=== PATIENT | female | born 1940 | race African-American/Black ===

== ENCOUNTER 2017-05-03 08:07 | Inpatient (IN) | payer OTHER, BC ==
--- NOTE | 2017-05-03 08:41 | PDOC ---
History of Present Illness - General Chief Complaint: Pain Stated Complaint: ABD PAIN Time Seen by Provider: 05/03/17 08:35 - History of Present Illness Initial Comments: 05/03/17 08:36 Ms. Najera is a 76 yo female with a significant past medical history of IBD, throidectomy, hysterectomy, and complex partial seizures who presents to the emergency department with a several week history of diarrhea and tiredness with occasional spotting of blood and 20 pound weight loss over the last year. Ms. Najera denies chest pain, shortness of breath, headache and dizziness. Denies fever, chills, nausea, vomit, and constipation. Denies dysuria, frequency , urgency and hematuria. Allergies: Wheat, ampicillin, egg, erythromycin, iodine, penicillins Past surgical history: thyroidectomy, breast papilloma biopsy, total hysterectomy Social history: None Past History - Past Medical History Allergies/Adverse Reactions: Allergies Allergy/AdvReac Type Severity Reaction Status Date / Time wheat [Wheat] Allergy Unknown Verified 05/03/17 08:13 ampicillin [Ampicillin] Allergy Verified 05/03/17 08:13 egg [Egg] Allergy Verified 05/03/17 08:13 erythromycin base Allergy Verified 05/03/17 08:13 [Erythromycin Base] iodine [Iodine] Allergy Verified 05/03/17 08:13 Penicillins Allergy Rash Verified 05/03/17 08:13 Shellfish Allergy Verified 05/03/17 08:13 Sulfa (Sulfonamide Allergy Verified 05/03/17 08:13 Antibiotics) tetracycline [Tetracycline] Allergy Verified 05/03/17 08:13 Home Medications: Ambulatory Orders Bupropion HCl [Wellbutrin -] 300 mg PO DAILY 06/01/16 Calcitriol [Calcitriol -] 0.25 mcg PO DAILY 06/01/16 Folic Acid 1 mg PO DAILY 06/01/16 L.acidoph,Paracasei, B.lactis [Probiotic] 1 each PO DAILY 06/01/16 Levothyroxine [Synthroid -] 25 mcg PO DAILY 06/01/16 Loperamide HCl/Simethicone [Imodium Multi-Symptom Rel Cplt] 1 each PO DAILY PRN 06/01/16 Diltiazem Cd [Cardizem Cd -] 240 mg PO DAILY 05/03/17 Furosemide [Lasix -] 20 mg PO DAILY 05/03/17 Nadolol 20 mg PO DAILY 05/03/17 Anemia: No Asthma: No Cancer: No Cardiac Disorders: No CVA: No COPD: No CHF: No Dementia: No Diabetes: No GI Disorders: Yes (GERD,IBS) Disorders: No HTN: Yes Hypercholesterolemia: No Liver Disease: No Suicide Attempt (Hx): No Seizures: Yes (Complex Partial Seizures) Thyroid Disease: Yes - Surgical History Abdominal Surgery: No Appendectomy: No Cardiac Surgery: No Cholecystectomy: No Lung Surgery: No Neurologic Surgery: No Orthopedic Surgery: Yes - Psycho/Social/Smoking Cessation Hx Anxiety: No Suicidal Ideation: No Smoking Status: No Smoking History: Never smoked Have you smoked in the past 12 months: No Number of Cigarettes Smoked Daily: 0 Information on smoking cessation initiated: No Hx Alcohol Use: No Drug/Substance Use Hx: No Substance Use Type: None Hx Substance Use Treatment: No Review of Systems - Review of Systems Comments:: 05/03/17 08:36 GENERAL/CONSTITUTIONAL: +Baseline weakness with low appetite. No fever or chills. HEAD, EYES, EARS, NOSE AND THROAT: No change in vision. No ear pain or discharge. No sore throat. CARDIOVASCULAR: No chest pain or shortness of breath RESPIRATORY: No cough, wheezing, or hemoptysis. GASTROINTESTINAL: +Long standing diarrhea. No nausea, vomiting, or constipation. GENITOURINARY: No dysuria, frequency, or change in urination. MUSCULOSKELETAL: No joint or muscle swelling or pain. No neck or back pain. SKIN: No rash NEUROLOGIC: No headache, vertigo, loss of consciousness, or change in strength/ sensation. ENDOCRINE: +20 pound weight loss. No increased thirst. HEMATOLOGIC/LYMPHATIC: No anemia, easy bleeding, or history of blood clots. ALLERGIC/IMMUNOLOGIC: No hives or skin allergy. *Physical Exam - Vital Signs Last Vital Signs Temp Pulse Resp BP Pulse Ox 98.1 F 57 L 18 130/66 100 05/03/17 08:08 05/03/17 08:08 05/03/17 08:08 05/03/17 08:08 05/03/17 08:08 - Physical Exam Comments: 05/03/17 08:36 GENERAL: Awake, alert, and fully oriented, in no acute distress HEAD: No signs of trauma, normocephalic, atraumatic EYES: PERRLA, EOMI, sclera anicteric, conjunctiva clear ENT: Auricles normal inspection, hearing grossly normal, nares patent, oropharynx clear without exudates. Moist mucosa NECK: Normal ROM, supple, no lymphadenopathy, JVD, or masses LUNGS: No distress, speaks full sentences, clear to auscultation bilaterally HEART: Regular rate and rhythm, normal S1 and S2, no murmurs, rubs or gallops, peripheral pulses normal and equal bilaterally. ABDOMEN: +Diffusely moderately tender. Soft, normoactive bowel sounds. No guarding, no rebound. No masses EXTREMITIES: Normal inspection, Normal range of motion, no edema. No clubbing or cyanosis. NEUROLOGICAL: Cranial nerves II through XII grossly intact. Normal speech, normal gait, no focal sensorimotor deficits SKIN: Warm, Dry, normal turgor, no rashes or lesions noted. ED Treatment Course - LABORATORY CBC & Chemistry Diagram: 05/03/17 09:15 05/03/17 09:15 Medical Decision Making - Medical Decision Making 05/03/17 13:36 Ms. Najera presents with a multiple week history of diarrhea with weight loss ( 20 lbs). Labs as below. CT showed colitis, will admit for treatment of this and UTI noted on UA. Laboratory Results - last 24 hr 05/03/17 05/03/17 05/03/17 09:15 09:15 09:15 WBC 4.2 RBC 3.92 Hgb 12.2 Hct 37.8 MCV 96.5 H MCH 31.2 MCHC 32.3 RDW 14.9 Plt Count 220 D MPV 8.4 Neutrophils % 46.8 Lymphocytes % 37.6 Monocytes % 13.3 H Eosinophils % 1.2 Basophils % 1.1 Sodium 143 Potassium 4.5 D Chloride 110 H Carbon Dioxide 28 Anion Gap 5 L BUN 9 Creatinine 1.3 H Creat Clearance w eGFR 39.82 Random Glucose 88 Lactic Acid Calcium 8.1 L Total Bilirubin 0.9 D AST 32 D ALT 26 D Alkaline Phosphatase 83 Total Protein 6.8 Albumin 3.2 L Lipase 73 TSH 1.06 D Urine Color Urine Appearance Urine pH Urine Protein Urine Glucose (UA) Urine Ketones Urine Blood Urine Nitrite Urine Bilirubin Urine Urobilinogen Ur Leukocyte Esterase Urine RBC Urine WBC Ur Epithelial Cells Urine Bacteria Urine Mucus Urine Yeast Stool Occult Blood Negative 05/03/17 05/03/17 09:16 10:24 WBC RBC Hgb Hct MCV MCH MCHC RDW Plt Count MPV Neutrophils % Lymphocytes % Monocytes % Eosinophils % Basophils % Sodium Potassium Chloride Carbon Dioxide Anion Gap BUN Creatinine Creat Clearance w eGFR Random Glucose Lactic Acid 0.6 Calcium Total Bilirubin AST ALT Alkaline Phosphatase Total Protein Albumin Lipase TSH Urine Color Ltyellow Urine Appearance Cloudy Urine pH 6.0 Urine Protein Negative Urine Glucose (UA) Negative Urine Ketones Negative Urine Blood 1+ H Urine Nitrite Positive Urine Bilirubin Negative Urine Urobilinogen Negative Ur Leukocyte Esterase 3+ H Urine RBC <1 Urine WBC 1 Ur Epithelial Cells Moderate Urine Bacteria Few Urine Mucus Rare Urine Yeast Rare Stool Occult Blood *DC/Admit/Observation/Transfer Diagnosis at time of Disposition: Colitis - Discharge Dispostion Admit: Yes - Referrals Referrals: Dylan Storm MD [Primary Care Provider] - - Attestations Physician Attestion: 05/03/17 10:11 I, Dr. Amari Joseph, attest that this document has been prepared under my direction and personally reviewed by me in its entirety. I further attest, that it accurately reflects all work, treatment, procedures and medical decision -making performed by me.
[2017-05-03] MEDS ORDERED: SODIUM CHLORIDE 1,000 ML IV STA (09:00)
[2017-05-03 09:47] LABS: BASOPHIL 1.1 % (0-2.0); EOSINOPHIL 1.2 % (0-4.5); MCH 31.2 pg (25.7-33.7); MCHC 32.3 g/dl (32.0-36.0); MEAN CELL VOLUME 96.5 fl (80-96); MEAN PLT VOLUME 8.4 fl (7.5-11.1); NEUTROPHILS 46.8 % (42.8-82.8); PLATELET COUNT 220 K/MM3 (134-434); RDW 14.9 % (11.6-15.6); WHITE BLOOD COUNT 4.2 K/mm3 (4.0-10.0)
[2017-05-03 09:51] LABS: ALBUMIN 3.2 g/dl (3.4-5.0); ANION GAP 5 (8-16); CALCIUM 8.1 mg/dL (8.5-10.1); CO2 28 mmol/L (21-32); CREATININE 1.3 mg/dL (0.55-1.02); GLUCOSE,RANDOM 88 mg/dL (74-106); SGPT/ALT 26 U/L (12-78)
[2017-05-03 09:53] LABS: ALK PHOS 83 U/L (45-117); BILIRUBIN,TOTAL 0.9 mg/dL (0.2-1.0); TOT PROT 6.8 g/dl (6.4-8.2)
[2017-05-03 09:56] LABS: SGOT/AST 32 U/L (15-37)
--- NOTE | 2017-05-03 11:01 | PDOC ---
Attending Attestation - Resident Resident Name: Amari Joseph - ED Attending Attestation I have performed the following: I have examined & evaluated the patient, The case was reviewed & discussed with the resident, I agree w/resident's findings & plan, Exceptions are as noted - HPI HPI: 05/03/17 10:57 76 F with h/o IBS, OA, hypothyroid, seizure d/o, presents to ER with several weeks of intermittent abdominal cramping and diarrhea. Denies F/C. She states that the symptoms are CONSISTENT with her IBS. However, she states that she has lost about 20 pounds over the past year. Denies N/V. She presents today because she is tired of going to the bathroom. Pt is concerned about colon cancer, as she has significant family history of colon CA. Last colonoscopy was 3 years ago. She states that she has a GI doctor she can f/u with. - Physicial Exam PE: 05/03/17 11:03 "GENERAL: Awake, alert, and fully oriented, in no acute distress HEAD: No signs of trauma EYES: PERRLA, EOMI, sclera anicteric, conjunctiva clear ENT: Auricles normal inspection, hearing grossly normal, nares patent, oropharynx clear without exudates. Moist mucosa NECK: Normal ROM, supple, no lymphadenopathy, JVD, or masses LUNGS: Breath sounds equal, clear to auscultation bilaterally. No wheezes, and no crackles HEART: Regular rate and rhythm, normal S1 and S2, no murmurs, rubs or gallops ABDOMEN: Soft, nontender, normoactive bowel sounds. No guarding, no rebound. No masses EXTREMITIES: Normal range of motion, no edema. No clubbing or cyanosis. No cords, erythema, or tenderness NEUROLOGICAL: Cranial nerves II through XII grossly intact. Normal speech, normal gait SKIN: Warm, Dry, normal turgor, no rashes or lesions noted. " - Medical Decision Making 05/03/17 11:04 76 F with several weeks of intermittent abdominal pain and diarrhea. Completely benign exam. Likely related to pt's IBS. However, given duration of symptoms and weight loss, will r/o acute pathology. - Labs - CTAP - IVF
[2017-05-03 11:37] LABS: THYROID STIMULATING HORMONE 1.06 uIU/ml (0.358-3.74)
[2017-05-03 12:06] LABS: URINE APPEARANCE CLOUDY; URINE BILIRUBIN NEGATIVE (NEGATIVE); URINE BLOOD 1+ (NEGATIVE); URINE COLOR LTYELLOW; URINE GLUCOSE (UA) NEGATIVE (NEGATIVE); URINE KETONE NEGATIVE (NEGATIVE); URINE NITRITE POSITIVE (NEGATIVE); URINE PROTEIN NEGATIVE (NEGATIVE); URINE UROBILINOGEN NEGATIVE mg/dL (0.2-1.0)
[2017-05-03 12:07] LABS: URINE LEUK ESTERASE 3+ (NEGATIVE)
[2017-05-03 12:23] LABS: URINE BACTERIA FEW /hpf (NONE SEEN); URINE MUCUS RARE; URINE RBC <1 /hpf (0-3); URINE WBC 1 /hpf (3-5); YEAST RARE
--- NOTE | 2017-05-03 12:29 | CON.GI ---
Consult Consult Specialty:: Gastroenterology Referred by:: Dr Storm Reason for Consultation:: Rectal bleeding, abdominal pain and weight loss - History of Present Illness Chief Complaint: Hematochezia yesterday. Epigastric pain and nausea. History of Present Illness: 76F presents after an episode of hematochezia that occurred yesterday. She has been having urgent and frequent bowel movements and fecal incontinence for the past week culminating in bleeding yesterday. She has also been experiencing epigastric dull pain and nausea but has not vomited. She continues to lose weight and reports and diminished appetite. No dysphagia but has early satiety. Has EGD and colonoscopy on 06/03/16 revealing no obvious ulcers, neoplasms or celiac disease and leading to the removal of a hyperplastic gastric fundus polyp , a hyperplastic descending colon polyp and tubular adenomas from the proximal and distal transverse colon and sigmoid colon. Mild distal half of the colon diverticulosis was also noted. [employer] review reveals that a CT scan in 05/22 revealed abdominal, pelvic and retroperitoneal lymph nodes. Her mother of colon cancer. - History Source History Provided By: Patient, Medical Record Limitations to Obtaining History: No Limitations - Past Medical History [employer]: Yes: Migraine, Seizure (partial complex seizure disorder dx'ed by Dr Tejada) Cardio/Vascular: Yes: HTN Pulmonary: Yes: Sleep Apnea (Pt reports she has a CPAP but does not use it. Refuses to use CPAP in hospital) Gastrointestinal: Yes: Constipation, Diverticulosis, Gastritis, GERD, Hiatal Hernia, Irritable Bowel Disease, Other (colon adenomas, hyperplastic gastric polyp) Hepatobiliary: Yes: Other (IBS) Renal/: Yes: Renal Inusuff, Other (urinary incontinence urinary frequency) Heme/Onc: Yes: B12 Deficiency Infectious Disease: Yes: Herpes Zoster Psych: Yes: Anxiety (Agoraphobia), Depression, Other (agoraphobia) Musculoskeletal: Yes: Osteoarthritis (of knees), Other (restless leg syndrome) Rheumatology: Yes: Other (discoid lupus, carpal tunnel syndrome,DJD) ENT: Yes: Allergic Rhinitis Endocrine: Yes: Hyperparathyroidism (s/p surgery), Hypothyroidism, Other (s/p R thyroidectomy removal of 2 parathyoid gland) - Past Surgical History Past Surgical History: Yes: Arthrosocopy (knees bilaterally) Additional Surgical History: partial right thyroidectomy. 3/4 parathyroidectomies - Alcohol/Substance Use Hx Alcohol Use: No History of Substance Use: reports: None - Smoking History Smoking history: Never smoked Have you smoked in the past 12 months: No Aproximately how many cigarettes per day: 0 - Social History Usual Living Arrangement: Alone ADL: Independent Occupation: retired teacher Place of : [facility] Home Medications - Allergies Allergies/Adverse Reactions: Allergies Allergy/AdvReac Type Severity Reaction Status Date / Time wheat [Wheat] Allergy Unknown Verified 05/03/17 08:13 ampicillin [Ampicillin] Allergy Verified 05/03/17 08:13 egg [Egg] Allergy Verified 05/03/17 08:13 erythromycin base Allergy Verified 05/03/17 08:13 [Erythromycin Base] iodine [Iodine] Allergy Verified 05/03/17 08:13 Penicillins Allergy Rash Verified 05/03/17 08:13 Shellfish Allergy Verified 05/03/17 08:13 Sulfa (Sulfonamide Allergy Verified 05/03/17 08:13 Antibiotics) tetracycline [Tetracycline] Allergy Verified 05/03/17 08:13 - Home Medications Home Medications: Ambulatory Orders Bupropion HCl [Wellbutrin -] 300 mg PO DAILY 06/01/16 Calcitriol [Calcitriol -] 0.25 mcg PO DAILY 06/01/16 Folic Acid 1 mg PO DAILY 06/01/16 L.acidoph,Paracasei, B.lactis [Probiotic] 1 each PO DAILY 06/01/16 Levothyroxine [Synthroid -] 25 mcg PO DAILY 06/01/16 Loperamide HCl/Simethicone [Imodium Multi-Symptom Rel Cplt] 1 each PO DAILY PRN 06/01/16 Diltiazem Cd [Cardizem Cd -] 240 mg PO DAILY 05/03/17 Furosemide [Lasix -] 20 mg PO DAILY 05/03/17 Nadolol 20 mg PO DAILY 05/03/17 Family Disease History - Family Disease History Family Disease History: CA: Grandparent (Breast cancer, cancer of throat), Mother ( colon cancer), Brother (Prostate ca, Hodgkin's lymphoma), Other: Mother Other Family History: pat aunt: uterine cancer, cousin: leukemia, uncle gastric cancer,. 2nd cousin pancreatic cancer Review of Systems - Review of Systems Constitutional: reports: Loss of Appetite, Unintentional Wgt. Loss, Weakness Eyes: reports: Floaters HENT: reports: No Symptoms Neck: reports: Stiffness Cardiovascular: reports: No Symptoms Respiratory: reports: No Symptoms Gastrointestinal: reports: Abdominal Pain, Constipation, Nausea, Rectal Bleeding Genitourinary: reports: Frequency, Incontinence Musculoskeletal: reports: Joint Pain, Muscle Pain, Muscle Weakness Neurological: reports: Parasthesia, Unsteady Gait Psychiatric: reports: Anxiety, Depression Physical Exam-GI Vital Signs: Vital Signs Temperature 98.1 F 05/03/17 08:08 Pulse Rate 57 L 05/03/17 08:08 Respiratory Rate 18 05/03/17 08:08 Blood Pressure 130/66 05/03/17 08:08 O2 Sat by Pulse Oximetry (%) 100 05/03/17 08:08 CBC,CMP WBC 4.2 K/mm3 (4.0-10.0) 05/03/17 09:15 RBC 3.92 M/mm3 (3.60-5.2) 05/03/17 09:15 Hgb 12.2 GM/dL (10.7-15.3) 05/03/17 09:15 Hct 37.8 % (32.4-45.2) 05/03/17 09:15 MCV 96.5 fl (80-96) H 05/03/17 09:15 MCH 31.2 pg (25.7-33.7) 05/03/17 09:15 MCHC 32.3 g/dl (32.0-36.0) 05/03/17 09:15 RDW 14.9 % (11.6-15.6) 05/03/17 09:15 Plt Count 220 K/MM3 (134-434) D 05/03/17 09:15 MPV 8.4 fl (7.5-11.1) 05/03/17 09:15 Neutrophils % 46.8 % (42.8-82.8) 05/03/17 09:15 Lymphocytes % 37.6 % (8-40) 05/03/17 09:15 Monocytes % 13.3 % (3.8-10.2) H 05/03/17 09:15 Eosinophils % 1.2 % (0-4.5) 05/03/17 09:15 Basophils % 1.1 % (0-2.0) 05/03/17 09:15 Sodium 143 mmol/L (136-145) 05/03/17 09:15 Potassium 4.5 mmol/L (3.5-5.1) D 05/03/17 09:15 Chloride 110 mmol/L (98-107) H 05/03/17 09:15 Carbon Dioxide 28 mmol/L (21-32) 05/03/17 09:15 Anion Gap 5 (8-16) L 05/03/17 09:15 BUN 9 mg/dL (7-18) 05/03/17 09:15 Creatinine 1.3 mg/dL (0.55-1.02) H 05/03/17 09:15 Creat Clearance w eGFR 39.82 (>60) 05/03/17 09:15 Random Glucose 88 mg/dL (74-106) 05/03/17 09:15 Lactic Acid 0.6 mmol/L (0.4-2.0) 05/03/17 10:24 Calcium 8.1 mg/dL (8.5-10.1) L 05/03/17 09:15 Total Bilirubin 0.9 mg/dL (0.2-1.0) D 05/03/17 09:15 AST 32 U/L (15-37) D 05/03/17 09:15 ALT 26 U/L (12-78) D 05/03/17 09:15 Alkaline Phosphatase 83 U/L (45-117) 05/03/17 09:15 Total Protein 6.8 g/dl (6.4-8.2) 05/03/17 09:15 Albumin 3.2 g/dl (3.4-5.0) L 05/03/17 09:15 Lipase 73 U/L (73-393) 05/03/17 09:15 TSH 1.06 uIU/ml (0.358-3.74) D 05/03/17 09:15 Constitutional: Yes: Cachectic, Thin Eyes: Yes: Conjunctiva Clear HENT: Yes: Atraumatic Neck: Yes: Trachea Midline, Other (alden incisions) Cardiovascular: Yes: Regular Rate and Rhythm Respiratory: Yes: CTA Bilaterally ...Auscultate: Yes: Normoactive Bowel Sounds ...Palpate: Yes: Soft, Tenderness, Epigastium (mild) ...Percussion: Yes: Tympanitic ...Rectal Exam: Yes: Deferred Edema: No Neurological: Yes: Alert Labs: CBC, BMP 05/03/17 09:15 05/03/17 09:15 Problem List - Problems (1) Rectal bleeding Code(s): K62.5 - HEMORRHAGE OF ANUS AND RECTUM (2) Colon adenomas Code(s): D12.6 - BENIGN NEOPLASM OF COLON, UNSPECIFIED (3) Family history of colon cancer in mother Code(s): Z80.0 - FAMILY HISTORY OF MALIGNANT NEOPLASM OF DIGESTIVE ORGANS Assessment/Plan Given her progressive weight loss and anorexia now with epigastric pain, hematochezia and early satiety, FH of colon cancer and lymphadenopathy on previous CT scan a comprehensive evaluation for an underlying neoplasm is indicated. I have discussed the potential risks of EGD and colonoscopy including but not limited to perforation and hemorrhage in detail with Yesenia Casanova after which she is in a position to give an informed consent. I have scheduled them for 05/05. CT is pending. I will consult oncology. Further recomendations to follow. Her recent head MRI reveals extensive gliosis. A neurology consultation will also be ordered.
[2017-05-03] MEDS ORDERED: LEVOTHYROXINE NA 25 MCG TABLET (FP) PO ONE (12:59)
[2017-05-03] MEDS ORDERED: FOLIC ACID 1 MG TABLET (FP) PO ONE (13:01)
--- NOTE | 2017-05-03 17:05 | HP ---
Admitting History and Physical - Primary Care Physician PCP: Kleber Napoles - Admission Chief Complaint: abdominal pain, bloody stool History of Present Illness: 76 F with h/o IBS, OA, hypothyroid, seizure d/o, presents to ER with several weeks of intermittent abdominal cramping and diarrhea. She states that the symptoms are CONSISTENT with her IBS. However, she states that she has lost about 20 pounds over the past year. Denies N/V. She presents today because she is tired of going to the bathroom. Pt is concerned about colon cancer, as she has significant family history of colon CA. - Past Medical History [employer] MEM[employer]: Yes: Migraine, Seizure (partial complex seizure disorder dx'ed by Dr Tejada) Cardiovascular: Yes: HTN Pulmonary: Yes: Sleep Apnea (Pt reports she has a CPAP but does not use it. Refuses to use CPAP in hospital) Gastrointestinal: Yes: Constipation, Diverticulosis, Gastritis, GERD, Hiatal Hernia, Irritable Bowel Disease, Other (colon adenomas, hyperplastic gastric polyp) Hepatobiliary: Yes: Other (IBS) Renal/: Yes: Renal Inusuff, Other (urinary incontinence urinary frequency) Heme/Onc: Yes: B12 Deficiency Infectious Disease: Yes: Herpes Zoster Psych: Yes: Anxiety (Agoraphobia), Depression, Other (agoraphobia) Musculoskeletal: Yes: Osteoarthritis (of knees), Other (restless leg syndrome) Rheumatology: Yes: Other (discoid lupus, carpal tunnel syndrome,DJD) ENT: Yes: Allergic Rhinitis Endocrine: Yes: Hyperparathyroidism (s/p surgery), Hypothyroidism, Other (s/p R thyroidectomy removal of 2 parathyoid gland) - Past Surgical History Past Surgical History: Yes: Arthrosocopy (knees bilaterally) - Smoking History Smoking history: Never smoked Have you smoked in the past 12 months: No Aproximately how many cigarettes per day: 0 - Alcohol/Substance Use Hx Alcohol Use: No History of Substance Use: reports: None - Social History ADL: Independent Occupation: retired teacher Home Medications - Allergies Allergies/Adverse Reactions: Allergies Allergy/AdvReac Type Severity Reaction Status Date / Time wheat [Wheat] Allergy Unknown Verified 05/03/17 08:13 ampicillin [Ampicillin] Allergy Verified 05/03/17 08:13 egg [Egg] Allergy Verified 05/03/17 08:13 erythromycin base Allergy Verified 05/03/17 08:13 [Erythromycin Base] iodine [Iodine] Allergy Verified 05/03/17 08:13 Penicillins Allergy Rash Verified 05/03/17 08:13 Shellfish Allergy Verified 05/03/17 08:13 Sulfa (Sulfonamide Allergy Verified 05/03/17 08:13 Antibiotics) tetracycline [Tetracycline] Allergy Verified 05/03/17 08:13 - Home Medications Home Medications: Ambulatory Orders Bupropion HCl [Wellbutrin -] 300 mg PO DAILY 06/01/16 Calcitriol [Calcitriol -] 0.25 mcg PO DAILY 06/01/16 Folic Acid 1 mg PO DAILY 06/01/16 L.acidoph,Paracasei, B.lactis [Probiotic] 1 each PO DAILY 06/01/16 Levothyroxine [Synthroid -] 25 mcg PO DAILY 06/01/16 Loperamide HCl/Simethicone [Imodium Multi-Symptom Rel Cplt] 1 each PO DAILY PRN 06/01/16 Diltiazem Cd [Cardizem Cd -] 240 mg PO DAILY 05/03/17 Furosemide [Lasix -] 20 mg PO DAILY 05/03/17 Nadolol 20 mg PO DAILY 05/03/17 Family Disease History - Family Disease History Family Disease History: CA: Grandparent (Breast cancer, cancer of throat), Mother ( colon cancer), Brother (Prostate ca, Hodgkin's lymphoma), Other: Mother Other Family History: pat aunt: uterine cancer, cousin: leukemia, uncle gastric cancer,. 2nd cousin pancreatic cancer Physical Examination Vital Signs: Vital Signs Temperature 98.1 F 05/03/17 08:08 Pulse Rate 56 L 05/03/17 16:34 Respiratory Rate 18 05/03/17 16:34 Blood Pressure 143/73 05/03/17 16:34 O2 Sat by Pulse Oximetry (%) 98 05/03/17 16:34 Constitutional: Yes: No Distress HENT: Yes: Atraumatic Neck: Yes: Supple Cardiovascular: Yes: Regular Rate and Rhythm Respiratory: Yes: CTA Bilaterally Gastrointestinal: Yes: Normal Bowel Sounds Extremities: Yes: WNL Problem List - Problems (1) Colitis Assessment/Plan: npo, ivf will monitor bms gi on board Code(s): K52.9 - NONINFECTIVE GASTROENTERITIS AND COLITIS, UNSPECIFIED (2) Family history of colon cancer in mother Code(s): Z80.0 - FAMILY HISTORY OF MALIGNANT NEOPLASM OF DIGESTIVE ORGANS (3) Rectal bleeding Assessment/Plan: will monitor Code(s): K62.5 - HEMORRHAGE OF ANUS AND RECTUM (4) Abdominal pain Assessment/Plan: prn pain meds Code(s): R10.9 - UNSPECIFIED ABDOMINAL PAIN Qualifiers: Abdominal location: right lower quadrant Qualified Code(s): R10.31 - Right lower quadrant pain (5) GERD (gastroesophageal reflux disease) Assessment/Plan: spo protonix Code(s): K21.9 - GASTRO-ESOPHAGEAL REFLUX DISEASE WITHOUT ESOPHAGITIS (6) HTN (hypertension) Assessment/Plan: stable on meds Code(s): I10 - ESSENTIAL (PRIMARY) HYPERTENSION (7) Hypothyroidism associated with surgical procedure Code(s): E89.0 - POSTPROCEDURAL HYPOTHYROIDISM (8) UTI (urinary tract infection) Assessment/Plan: ucx sent Code(s): N39.0 - URINARY TRACT INFECTION, SITE NOT SPECIFIED Assessment/Plan Laboratory Tests 05/03/17 05/03/17 05/03/17 09:15 09:15 09:15 WBC 4.2 RBC 3.92 Hgb 12.2 Hct 37.8 MCV 96.5 H MCH 31.2 MCHC 32.3 RDW 14.9 Plt Count 220 D MPV 8.4 Neutrophils % 46.8 Lymphocytes % 37.6 Monocytes % 13.3 H Eosinophils % 1.2 Basophils % 1.1 Sodium 143 Potassium 4.5 D Chloride 110 H Carbon Dioxide 28 Anion Gap 5 L BUN 9 Creatinine 1.3 H Creat Clearance w eGFR 39.82 Random Glucose 88 Lactic Acid Calcium 8.1 L Total Bilirubin 0.9 D AST 32 D ALT 26 D Alkaline Phosphatase 83 Total Protein 6.8 Albumin 3.2 L Lipase 73 TSH 1.06 D Urine Color Urine Appearance Urine pH Ur Specific [place] Urine Protein Urine Glucose (UA) Urine Ketones Urine Blood Urine Nitrite Urine Bilirubin Urine Urobilinogen Ur Leukocyte Esterase Urine RBC Urine WBC Ur Epithelial Cells Urine Bacteria Urine Mucus Urine Yeast Stool Occult Blood Negative 05/03/17 05/03/17 09:16 10:24 WBC RBC Hgb Hct MCV MCH MCHC RDW Plt Count MPV Neutrophils % Lymphocytes % Monocytes % Eosinophils % Basophils % Sodium Potassium Chloride Carbon Dioxide Anion Gap BUN Creatinine Creat Clearance w eGFR Random Glucose Lactic Acid 0.6 Calcium Total Bilirubin AST ALT Alkaline Phosphatase Total Protein Albumin Lipase TSH Urine Color Ltyellow Urine Appearance Cloudy Urine pH 6.0 Ur Specific [place] 1.010 Urine Protein Negative Urine Glucose (UA) Negative Urine Ketones Negative Urine Blood 1+ H Urine Nitrite Positive Urine Bilirubin Negative Urine Urobilinogen Negative Ur Leukocyte Esterase 3+ H Urine RBC <1 Urine WBC 1 Ur Epithelial Cells Moderate Urine Bacteria Few Urine Mucus Rare Urine Yeast Rare Stool Occult Blood Active Medications Generic Name Dose Route Start Last Admin Trade Name Jaciel PRN Reason Stop Dose Admin Bisacodyl 20 mg 05/04/17 18:00 Dulcolax - PO 05/04/17 18:01 ONCE ONE Bupropion HCl 300 mg 05/04/17 10:00 Wellbutrin Xl - PO DAILY [facility] Calcitriol 0.25 mcg 05/04/17 10:00 Rocaltrol - PO DAILY [facility] Diltiazem HCl 240 mg 05/04/17 10:00 Cardizem Cd - PO DAILY [facility] Nadolol 20 mg 05/04/17 10:00 Corgard - PO DAILY [facility] Polyethylene Glycol 17 gm 05/03/17 14:00 Miralax (For Daily Use) - PO TID [facility] Ranitidine HCl 150 mg 05/03/17 22:00 Zantac - PO BID [facility]
[2017-05-03 17:26] VITALS: BMI 22.4
--- NOTE | 2017-05-03 18:57 | EKG ---
Test Reason : Blood Pressure : / mmHG Vent. Rate : 046 BPM Atrial Rate : 046 BPM P-R Int : 168 ms QRS Dur : 080 ms QT Int : 492 ms P-R-T Axes : 061 030 027 degrees QTc Int : 430 ms SINUS BRADYCARDIA OTHERWISE NORMAL ECG WHEN COMPARED WITH ECG OF 04-JUN-2016 10:56, NO SIGNIFICANT CHANGE WAS FOUND Confirmed by JILLIAN SOLITARIO MD ([id number]) on 05/03/2017 6:57:09 PM Referred By: Confirmed By:JILLIAN SOLITARIO MD
--- NOTE | 2017-05-03 20:01 | CONSULT ---
Consult - text type - Consultation Consultation Note: Patient seen and examined 76F presents with episode of hematochezia She has had some discomfort and dull abd apin wiht some nauseous feeling but no episode of vomiting .according to the patient she has lost weight . her ct scan from last year did show findings but she did have a colonoscopy that time with no significant findings patient going for colonoscopy tomorrow also has UTI - History Source History Provided By: Patient - Past Medical History [employer]: Yes: Migraine, Seizure (partial complex seizure disorder dx'ed by Dr Tejada) Cardio/Vascular: Yes: HTN Pulmonary: Yes: Sleep Apnea (Pt reports she has a CPAP but does not use it. Refuses to use CPAP in hospital) Gastrointestinal: Yes: Constipation, Diverticulosis, Gastritis, GERD, Hiatal Hernia, Irritable Bowel Disease, Other (colon adenomas, hyperplastic gastric polyp) Hepatobiliary: Yes: Other (IBS) Renal/: Yes: Renal Inusuff, Other (urinary incontinence urinary frequency) Infectious Disease: Yes: Herpes Zoster Psych: Yes: Anxiety (Agoraphobia), Depression, Other (agoraphobia) Musculoskeletal: Yes: Osteoarthritis (of knees), Other (restless leg syndrome) Rheumatology: Yes: Other (discoid lupus, carpal tunnel syndrome,DJD) ENT: Yes: Allergic Rhinitis Endocrine: Yes: Hyperparathyroidism (s/p surgery), Hypothyroidism, Other (s/p R thyroidectomy removal of 2 parathyoid gland) - Past Surgical History Past Surgical History: Yes: Arthrosocopy (knees bilaterally) Additional Surgical History: partial right thyroidectomy. 3/4 parathyroidectomies - Smoking History Smoking history: Never smoked - Social History Usual Living Arrangement: Alone ADL: Independent Occupation: retired teacher Home Medications - Allergies Allergies/Adverse Reactions: Allergies Allergy/AdvReac Type Severity Reaction Status Date / Time wheat [Wheat] Allergy Unknown Verified 05/03/17 08:13 ampicillin [Ampicillin] Allergy Verified 05/03/17 08:13 egg [Egg] Allergy Verified 05/03/17 08:13 erythromycin base Allergy Verified 05/03/17 08:13 [Erythromycin Base] iodine [Iodine] Allergy Verified 05/03/17 08:13 Penicillins Allergy Rash Verified 05/03/17 08:13 Shellfish Allergy Verified 05/03/17 08:13 Sulfa (Sulfonamide Allergy Verified 05/03/17 08:13 Antibiotics) tetracycline [Tetracycline] Allergy Verified 05/03/17 08:13 - Home Medications Home Medications: Ambulatory Orders Bupropion HCl [Wellbutrin -] 300 mg PO DAILY 06/01/16 Calcitriol [Calcitriol -] 0.25 mcg PO DAILY 06/01/16 Folic Acid 1 mg PO DAILY 06/01/16 L.acidoph,Paracasei, B.lactis [Probiotic] 1 each PO DAILY 06/01/16 Levothyroxine [Synthroid -] 25 mcg PO DAILY 06/01/16 Loperamide HCl/Simethicone [Imodium Multi-Symptom Rel Cplt] 1 each PO DAILY PRN 06/01/16 Diltiazem Cd [Cardizem Cd -] 240 mg PO DAILY 05/03/17 Furosemide [Lasix -] 20 mg PO DAILY 05/03/17 Nadolol 20 mg PO DAILY 05/03/17 Family Disease History - Family Disease History Family Disease History: CA: Grandparent (Breast cancer, cancer of throat), Mother ( colon cancer), Brother (Prostate ca, Hodgkin's lymphoma), Other: Mother Other Family History: pat aunt: uterine cancer, cousin: leukemia, uncle gastric cancer,. 2nd cousin pancreatic cancer Physical Exam Vital Signs: Vital Signs Temperature 98.2 F 05/04/17 09:00 Pulse Rate 57 L 05/04/17 09:00 Respiratory Rate 18 05/04/17 09:00 Blood Pressure 140/68 05/04/17 09:00 O2 Sat by Pulse Oximetry (%) 97 05/04/17 09:00 Constitutional: Yes: No Distress, Calm, Thin Eyes: Yes: Conjunctiva Clear HENT: Yes: Atraumatic Neck: Yes: Supple, Trachea Midline Cardiovascular: Yes: Regular Rate and Rhythm Respiratory: Yes: Regular, CTA Bilaterally Gastrointestinal: Yes: Normal Bowel Sounds, Soft Musculoskeletal: Yes: WNL Extremities: Yes: WNL Neurological: Yes: Alert, Oriented Assessment/Plan Problem List - Problems (1) Colitis Code(s): K52.9 - NONINFECTIVE GASTROENTERITIS AND COLITIS, UNSPECIFIED (2) Family history of colon cancer in mother Code(s): Z80.0 - FAMILY HISTORY OF MALIGNANT NEOPLASM OF DIGESTIVE ORGANS (3) Rectal bleeding Code(s): K62.5 - HEMORRHAGE OF ANUS AND RECTUM (4) Abdominal pain Code(s): R10.9 - UNSPECIFIED ABDOMINAL PAIN Qualifiers: Abdominal location: right lower quadrant Qualified Code(s): R10.31 - Right lower quadrant pain (5) GERD (gastroesophageal reflux disease) Code(s): K21.9 - GASTRO-ESOPHAGEAL REFLUX DISEASE WITHOUT ESOPHAGITIS (6) HTN (hypertension) Code(s): I10 - ESSENTIAL (PRIMARY) HYPERTENSION (7) Hypothyroidism associated with surgical procedure Code(s): E89.0 - POSTPROCEDURAL HYPOTHYROIDISM 8) uti In brief, 76 y/o patient with lower abdominal pain, weight loss, malaise, diarrhea, bleeding per rectum CT scans 05/22 and the one this admission --thickening of sigmoid, <1cm mesenteric, retroperitoneal nodes to get gi w/u for wt. loss
[2017-05-03] MEDS: RANITIDINE HCL 150 MG TABLET (FP) PO SCH (21:25)
[2017-05-03] MEDS: POLYETHYLENE GLYCOL 3350 119 GM BTL PO SCH (21:29)
[2017-05-03] MEDS: SODIUM CHLORIDE 1,000 ML IV SCH (23:16)
[2017-05-04] MEDS: POLYETHYLENE GLYCOL 3350 119 GM BTL PO SCH ×4 (05:52→21:25)
[2017-05-04 08:28] LABS: BASOPHIL 1.1 % (0-2.0); EOSINOPHIL 2.1 % (0-4.5); MCH 31.5 pg (25.7-33.7); MCHC 32.9 g/dl (32.0-36.0); MEAN CELL VOLUME 95.9 fl (80-96); MEAN PLT VOLUME 8.4 fl (7.5-11.1); NEUTROPHILS 44.6 % (42.8-82.8); PLATELET COUNT 185 K/MM3 (134-434); RDW 14.7 % (11.6-15.6); WHITE BLOOD COUNT 4.3 K/mm3 (4.0-10.0)
[2017-05-04 08:53] LABS: ANION GAP 7 (8-16); CALCIUM 7.9 mg/dL (8.5-10.1); CO2 29 mmol/L (21-32); CREATININE 1.1 mg/dL (0.55-1.02); GLUCOSE,RANDOM 80 mg/dL (74-106)
[2017-05-04] MEDS ORDERED: PEG3350/SOD SULF,BICARB,CL/KCL 4,000 ML SOLN.RECON PO ONE (09:00)
[2017-05-04] MEDS ORDERED: PT OWN MED DRAWER 7, Y5N ONE (10:33)
[2017-05-04] MEDS: RANITIDINE HCL 150 MG TABLET (FP) PO SCH ×2 (10:35→21:24)
[2017-05-04] MEDS: CALCITRIOL 0.25 MCG CAPSULE (FP) PO SCH (10:35)
[2017-05-04] MEDS: NADOLOL 20 MG TABLET (FP) PO SCH (10:36)
[2017-05-04] MEDS: SODIUM CHLORIDE 1,000 ML IV SCH (12:09)
[2017-05-04 12:40] LABS: C-REACTIVE PROTEIN < 0.3 MG/DL (0.00-0.3)
--- NOTE | 2017-05-04 13:21 | CONSULT ---
Consult Consult Specialty:: infectious diseases Reason for Consultation:: uti,colitis - History of Present Illness Chief Complaint: bleeding per rectum History of Present Illness: 76F presents with episode of hematochezia that occurred yesterday. She has been having urgent and frequent bowel movements and fecal incontinence for the past week culminating in bleeding yesterday. I had seen her last tiem and since then she has been doing well She has had some discomfort and dull abd apin wiht some nauseous feeling but no episode of vomiting .according to the patient she has lost weight . her ct scan from last year did show findings but she did have a colonoscopy that time with no significant findings patient going for colonoscopy probably tomorrow patient was worked and is being prepared for colonoscopy and on work up has UTI currently patient is stable and no complaints - History Source History Provided By: Patient Limitations to Obtaining History: No Limitations - Past Medical History ELECTRICAL ASSEMBLER: Yes: Migraine, Seizure (partial complex seizure disorder dx'ed by Dr Tejada) Cardio/Vascular: Yes: HTN Pulmonary: Yes: Sleep Apnea (Pt reports she has a CPAP but does not use it. Refuses to use CPAP in hospital) Gastrointestinal: Yes: Constipation, Diverticulosis, Gastritis, GERD, Hiatal Hernia, Irritable Bowel Disease, Other (colon adenomas, hyperplastic gastric polyp) Hepatobiliary: Yes: Other (IBS) Renal/: Yes: Renal Inusuff, Other (urinary incontinence urinary frequency) Infectious Disease: Yes: Herpes Zoster Psych: Yes: Anxiety (Agoraphobia), Depression, Other (agoraphobia) Musculoskeletal: Yes: Osteoarthritis (of knees), Other (restless leg syndrome) Rheumatology: Yes: Other (discoid lupus, carpal tunnel syndrome,DJD) ENT: Yes: Allergic Rhinitis Endocrine: Yes: Hyperparathyroidism (s/p surgery), Hypothyroidism, Other (s/p R thyroidectomy removal of 2 parathyoid gland) - Past Surgical History Past Surgical History: Yes: Arthrosocopy (knees bilaterally) Additional Surgical History: partial right thyroidectomy. 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 Medications - Allergies Allergies/Adverse Reactions: Allergies Allergy/AdvReac Type Severity Reaction Status Date / Time wheat [Wheat] Allergy Unknown Verified 05/03/17 08:13 ampicillin [Ampicillin] Allergy Verified 05/03/17 08:13 egg [Egg] Allergy Verified 05/03/17 08:13 erythromycin base Allergy Verified 05/03/17 08:13 [Erythromycin Base] iodine [Iodine] Allergy Verified 05/03/17 08:13 Penicillins Allergy Rash Verified 05/03/17 08:13 Shellfish Allergy Verified 05/03/17 08:13 Sulfa (Sulfonamide Allergy Verified 05/03/17 08:13 Antibiotics) tetracycline [Tetracycline] Allergy Verified 05/03/17 08:13 - Home Medications Home Medications: Ambulatory Orders Bupropion HCl [Wellbutrin -] 300 mg PO DAILY 06/01/16 Calcitriol [Calcitriol -] 0.25 mcg PO DAILY 06/01/16 Folic Acid 1 mg PO DAILY 06/01/16 L.acidoph,Paracasei, B.lactis [Probiotic] 1 each PO DAILY 06/01/16 Levothyroxine [Synthroid -] 25 mcg PO DAILY 06/01/16 Loperamide HCl/Simethicone [Imodium Multi-Symptom Rel Cplt] 1 each PO DAILY PRN 06/01/16 Diltiazem Cd [Cardizem Cd -] 240 mg PO DAILY 05/03/17 Furosemide [Lasix -] 20 mg PO DAILY 05/03/17 Nadolol 20 mg PO DAILY 05/03/17 Family Disease History - Family Disease History Family Disease History: CA: Grandparent (Breast cancer, cancer of throat), Mother ( colon cancer), Brother (Prostate ca, Hodgkin's lymphoma), Other: Mother Other Family History: pat aunt: uterine cancer, cousin: leukemia, uncle gastric cancer,. 2nd cousin pancreatic cancer Review of Systems - Review of Systems Constitutional: reports: Unintentional Wgt. Loss Eyes: reports: No Symptoms HENT: reports: No Symptoms Neck: reports: No Symptoms Cardiovascular: reports: No Symptoms Respiratory: reports: No Symptoms Gastrointestinal: reports: Nausea, Rectal Bleeding Genitourinary: reports: No Symptoms Musculoskeletal: reports: No Symptoms Integumentary: reports: No Symptoms Neurological: reports: No Symptoms Endocrine: reports: No Symptoms Hematology/Lymphatic: reports: No Symptoms Psychiatric: reports: No Symptoms Physical Exam Vital Signs: Vital Signs Temperature 98.2 F 05/04/17 09:00 Pulse Rate 57 L 05/04/17 09:00 Respiratory Rate 18 05/04/17 09:00 Blood Pressure 140/68 05/04/17 09:00 O2 Sat by Pulse Oximetry (%) 97 05/04/17 09:00 Constitutional: Yes: No Distress, Calm, Thin Eyes: Yes: Conjunctiva Clear HENT: Yes: Atraumatic Neck: Yes: Supple, Trachea Midline Cardiovascular: Yes: Regular Rate and Rhythm Respiratory: Yes: Regular, CTA Bilaterally Gastrointestinal: Yes: Normal Bowel Sounds, Soft Musculoskeletal: Yes: WNL Extremities: Yes: WNL Neurological: Yes: Alert, Oriented Psychiatric: Yes: Alert, Oriented Labs: CBC, BMP 05/04/17 07:20 05/04/17 07:20 Imaging - Results Cat Scan: Report Reviewed, Image Reviewed Assessment/Plan Problem List - Problems (1) Colitis Code(s): K52.9 - NONINFECTIVE GASTROENTERITIS AND COLITIS, UNSPECIFIED (2) Family history of colon cancer in mother Code(s): Z80.0 - FAMILY HISTORY OF MALIGNANT NEOPLASM OF DIGESTIVE ORGANS (3) Rectal bleeding Code(s): K62.5 - HEMORRHAGE OF ANUS AND RECTUM (4) Abdominal pain Code(s): R10.9 - UNSPECIFIED ABDOMINAL PAIN Qualifiers: Abdominal location: right lower quadrant Qualified Code(s): R10.31 - Right lower quadrant pain (5) GERD (gastroesophageal reflux disease) Code(s): K21.9 - GASTRO-ESOPHAGEAL REFLUX DISEASE WITHOUT ESOPHAGITIS (6) HTN (hypertension) Code(s): I10 - ESSENTIAL (PRIMARY) HYPERTENSION (7) Hypothyroidism associated with surgical procedure Code(s): E89.0 - POSTPROCEDURAL HYPOTHYROIDISM 8) uti plan will start patient on aztreonam and flagyl rest continue as per primary gi
[2017-05-04] MEDS: METRONIDAZOLE 500 MG PREMIXED 100 ML IVPB SCH ×2 (13:50→18:27)
--- NOTE | 2017-05-04 14:42 | PN ---
Progress Note, Physician - Current Medication List Current Medications: Active Medications Bisacodyl (Dulcolax -) 20 mg PO ONCE ONE Stop: 05/04/17 18:01 Bupropion HCl (Wellbutrin Xl -) 300 mg PO DAILY [facility] Last Admin: 05/04/17 10:36 Dose: 300 mg Calcitriol (Rocaltrol -) 0.25 mcg PO DAILY [facility] Last Admin: 05/04/17 10:35 Dose: 0.25 mcg Diltiazem HCl (Cardizem Cd -) 240 mg PO DAILY [facility] Last Admin: 05/04/17 10:38 Dose: 240 mg Sodium Chloride (Normal Saline -) 1,000 mls @ 75 mls/hr IV ASDIR [facility] Last Admin: 05/04/17 12:09 Dose: 75 mls/hr Aztreonam 1 gm/ Dextrose 50 mls @ 100 mls/hr IVPB Q8H-IV [facility] PRN Reason: Protocol Metronidazole (Flagyl 500mg Premixed Ivpb -) 100 mls @ 100 mls/hr IVPB Q8H-IV [facility] Last Admin: 05/04/17 13:50 Dose: 100 mls/hr Nadolol (Corgard -) 20 mg PO DAILY [facility] Last Admin: 05/04/17 10:36 Dose: 20 mg Polyethylene Glycol (Miralax (For Daily Use) -) 17 gm PO TID [facility] Last Admin: 05/04/17 05:52 Dose: 17 gm Ranitidine HCl (Zantac -) 150 mg PO BID [facility] Last Admin: 05/04/17 10:35 Dose: 150 mg - Objective Vital Signs: Vital Signs Temperature 97.8 F 05/04/17 14:09 Pulse Rate 52 L 05/04/17 14:09 Respiratory Rate 18 05/04/17 09:00 Blood Pressure 154/78 05/04/17 14:09 O2 Sat by Pulse Oximetry (%) 97 05/04/17 09:00 Constitutional: Yes: No Distress HENT: Yes: Atraumatic Neck: Yes: Supple Cardiovascular: Yes: Regular Rate and Rhythm Respiratory: Yes: CTA Bilaterally Gastrointestinal: Yes: Normal Bowel Sounds Extremities: Yes: WNL Peripheral Pulses WNL: Yes Neurological: Yes: Alert, Oriented Labs: CBC, BMP 05/04/17 07:20 05/04/17 07:20 Problem List - Problems (1) Colitis Assessment/Plan: npo, ivf will monitor bms gi on board Code(s): K52.9 - NONINFECTIVE GASTROENTERITIS AND COLITIS, UNSPECIFIED (2) Family history of colon cancer in mother Code(s): Z80.0 - FAMILY HISTORY OF MALIGNANT NEOPLASM OF DIGESTIVE ORGANS (3) Rectal bleeding Assessment/Plan: will monitor Code(s): K62.5 - HEMORRHAGE OF ANUS AND RECTUM (4) Abdominal pain Assessment/Plan: prn pain meds Code(s): R10.9 - UNSPECIFIED ABDOMINAL PAIN Qualifiers: Abdominal location: right lower quadrant Qualified Code(s): R10.31 - Right lower quadrant pain (5) GERD (gastroesophageal reflux disease) Assessment/Plan: spo protonix Code(s): K21.9 - GASTRO-ESOPHAGEAL REFLUX DISEASE WITHOUT ESOPHAGITIS (6) HTN (hypertension) Assessment/Plan: stable on meds Code(s): I10 - ESSENTIAL (PRIMARY) HYPERTENSION (7) Hypothyroidism associated with surgical procedure Code(s): E89.0 - POSTPROCEDURAL HYPOTHYROIDISM (8) UTI (urinary tract infection) Assessment/Plan: ucx sent on abx per id Code(s): N39.0 - URINARY TRACT INFECTION, SITE NOT SPECIFIED
--- NOTE | 2017-05-04 15:22 | CON.NEURO ---
Consult - Past Medical History BANQUET BARTENDER: Yes: Migraine, Seizure (partial complex seizure disorder dx'ed by Dr Tejada) Cardio/Vascular: Yes: HTN Pulmonary: Yes: Sleep Apnea (Pt reports she has a CPAP but does not use it. Refuses to use CPAP in hospital) Gastrointestinal: Yes: Constipation, Diverticulosis, Gastritis, GERD, Hiatal Hernia, Irritable Bowel Disease, Other (colon adenomas, hyperplastic gastric polyp) Hepatobiliary: Yes: Other (IBS) Renal/: Yes: Renal Inusuff, Other (urinary incontinence urinary frequency) Infectious Disease: Yes: Herpes Zoster Psych: Yes: Anxiety (Agoraphobia), Depression, Other (agoraphobia) Musculoskeletal: Yes: Osteoarthritis (of knees), Other (restless leg syndrome) Rheumatology: Yes: Other (discoid lupus, carpal tunnel syndrome,DJD) ENT: Yes: Allergic Rhinitis Endocrine: Yes: Hyperparathyroidism (s/p surgery), Hypothyroidism, Other (s/p R thyroidectomy removal of 2 parathyoid gland) - Past Surgical History Past Surgical History: Yes: Arthrosocopy (knees bilaterally) Additional Surgical History: partial right thyroidectomy. 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 Medications - Allergies Allergies/Adverse Reactions: Allergies Allergy/AdvReac Type Severity Reaction Status Date / Time wheat [Wheat] Allergy Unknown Verified 05/03/17 08:13 ampicillin [Ampicillin] Allergy Verified 05/03/17 08:13 egg [Egg] Allergy Verified 05/03/17 08:13 erythromycin base Allergy Verified 05/03/17 08:13 [Erythromycin Base] iodine [Iodine] Allergy Verified 05/03/17 08:13 Penicillins Allergy Rash Verified 05/03/17 08:13 Shellfish Allergy Verified 05/03/17 08:13 Sulfa (Sulfonamide Allergy Verified 05/03/17 08:13 Antibiotics) tetracycline [Tetracycline] Allergy Verified 05/03/17 08:13 - Home Medications Home Medications: Ambulatory Orders Bupropion HCl [Wellbutrin -] 300 mg PO DAILY 06/01/16 Calcitriol [Calcitriol -] 0.25 mcg PO DAILY 06/01/16 Folic Acid 1 mg PO DAILY 06/01/16 L.acidoph,Paracasei, B.lactis [Probiotic] 1 each PO DAILY 06/01/16 Levothyroxine [Synthroid -] 25 mcg PO DAILY 06/01/16 Loperamide HCl/Simethicone [Imodium Multi-Symptom Rel Cplt] 1 each PO DAILY PRN 06/01/16 Diltiazem Cd [Cardizem Cd -] 240 mg PO DAILY 05/03/17 Furosemide [Lasix -] 20 mg PO DAILY 05/03/17 Nadolol 20 mg PO DAILY 05/03/17 Family Disease History - Family Disease History Family Disease History: CA: Grandparent (Breast cancer, cancer of throat), Mother ( colon cancer), Brother (Prostate ca, Hodgkin's lymphoma), Other: Mother Other Family History: pat aunt: uterine cancer, cousin: leukemia, uncle gastric cancer,. 2nd cousin pancreatic cancer Physical Exam-Neuro Vital Signs: Vital Signs Temperature 97.8 F 05/04/17 14:09 Pulse Rate 52 L 05/04/17 14:09 Respiratory Rate 18 05/04/17 09:00 Blood Pressure 154/78 05/04/17 14:09 O2 Sat by Pulse Oximetry (%) 97 05/04/17 09:00 Labs: CBC, BMP 05/04/17 07:20 05/04/17 07:20 Assessment/Plan cc Neurology follow up for multiple problem as outpatinet ( complex partial seizures, balance difficulty, cts, restless leg syndrome ) HPI 76 year old patient , known to dr tejada for a long time. She has several neurological issue including complex partial seizure, balance difficulty , cts , radicular neck pain and restless leg syndrome. Till recently she was on gabapnetin and mirapex for Sz and RLS.Both the medication has been stopped recently. She has not had any new seizures recently. She had mri of brain done recently , which showed gliosis and white matter disease. Patient has been stopped for mirapex too. Her current active problem is balance difficulty and intermittent radicular neck pain. she recently had mri of c spine and showed DJD. She has been admitted for abdominal pain . Past Surgical History: Yes: Arthrosocopy (knees bilaterally) - Smoking History Smoking history: Never smoked Have you smoked in the past 12 months: No Aproximately how many cigarettes per day: 0 - Alcohol/Substance Use Hx Alcohol Use: No History of Substance Use: reports: None - Social History ADL: Independent Occupation: retired teacher Allergies/Adverse Reactions: Allergies Allergy/AdvReac Type Severity Reaction Status Date / Time wheat [Wheat] Allergy Unknown Verified 05/03/17 08:13 ampicillin [Ampicillin] Allergy Verified 05/03/17 08:13 egg [Egg] Allergy Verified 05/03/17 08:13 erythromycin base Allergy Verified 05/03/17 08:13 [Erythromycin Base] iodine [Iodine] Allergy Verified 05/03/17 08:13 Penicillins Allergy Rash Verified 05/03/17 08:13 Shellfish Allergy Verified 05/03/17 08:13 Sulfa (Sulfonamide Allergy Verified 05/03/17 08:13 Antibiotics) tetracycline [Tetracycline] Allergy Verified 05/03/17 08:13 Home Medication Bupropion HCl [Wellbutrin -] 300 mg PO DAILY 06/01/16 Calcitriol [Calcitriol -] 0.25 mcg PO DAILY 06/01/16 Folic Acid 1 mg PO DAILY 06/01/16 L.acidoph,Paracasei, B.lactis [Probiotic] 1 each PO DAILY 06/01/16 Levothyroxine [Synthroid -] 25 mcg PO DAILY 06/01/16 Loperamide HCl/Simethicone [Imodium Multi-Symptom Rel Cplt] 1 each PO DAILY PRN 06/01/16 Diltiazem Cd [Cardizem Cd -] 240 mg PO DAILY 05/03/17 Furosemide [Lasix -] 20 mg PO DAILY 05/03/17 Nadolol 20 mg PO DAILY 05/03/17 Family Disease History - Family Disease History Family Disease History: CA: Grandparent (Breast cancer, cancer of throat), Mother ( colon cancer), Brother (Prostate ca, Hodgkin's lymphoma), Other: Mother Other Family History: pat aunt: uterine cancer, cousin: leukemia, uncle gastric cancer,. 2nd cousin pancreatic cancer Neurological Examination Aler oriented x 3 eomi and no face asymmetry moving all extremity sensation is normal Previous MRI of brain and Cx Spine was reviewed Assessment- 1. complex partial seizure -- no seizures since medication was held. continue to hold AED. 2. RLS - hold mirapex for now 3. Balance difficulty seems to be multifactorial advise to do PT 4. Intermittent neck pain - exam is benign and mri of c spine showed djd would do PT outpatient and nsaid and follow up outpatient thanks for consult Elder Tinoco MD
[2017-05-04] MEDS: AZTREONAM 1 GM in DEXTROSE 5%-WATER - 50 ML IVPB SCH ×2 (15:31→17:43)
[2017-05-04] MEDS ORDERED: BISACODYL 5 MG TABLET.DR (FP) PO ONE (18:00)
[2017-05-05] MEDS: AZTREONAM 1 GM in DEXTROSE 5%-WATER - 50 ML IVPB SCH ×3 (01:04→17:26)
[2017-05-05] MEDS: METRONIDAZOLE 500 MG PREMIXED 100 ML IVPB SCH ×3 (01:04→19:56)
[2017-05-05] MEDS: POLYETHYLENE GLYCOL 3350 119 GM BTL PO SCH ×3 (06:12→21:50)
--- NOTE | 2017-05-05 11:59 | PN ---
Progress Note (short form) - Note Progress Note: GI Procedures NOte: Please see EGD and colonoscopy reports. No source of weight loss was found. CT also unrevealing. Will advance diet. No GI objections to discharge when otherwise stable enough. Problem List - Problems (1) Rectal bleeding Code(s): K62.5 - HEMORRHAGE OF ANUS AND RECTUM (2) Colon adenomas Code(s): D12.6 - BENIGN NEOPLASM OF COLON, UNSPECIFIED (3) Family history of colon cancer in mother Code(s): Z80.0 - FAMILY HISTORY OF MALIGNANT NEOPLASM OF DIGESTIVE ORGANS
[2017-05-05] MEDS: RANITIDINE HCL 150 MG TABLET (FP) PO SCH ×2 (13:52→21:49)
[2017-05-05] MEDS: NADOLOL 20 MG TABLET (FP) PO SCH (13:52)
[2017-05-05] MEDS: CALCITRIOL 0.25 MCG CAPSULE (FP) PO SCH (13:52)
--- NOTE | 2017-05-05 18:13 | PN ---
Progress Note, Physician History of Present Illness: doing well - Current Medication List Current Medications: Active Medications Bupropion HCl (Wellbutrin Xl -) 300 mg PO DAILY [facility] [place] Last Admin: 05/05/17 13:52 Dose: 300 mg Calcitriol (Rocaltrol -) 0.25 mcg PO DAILY [facility] [place] Last Admin: 05/05/17 13:52 Dose: 0.25 mcg Diltiazem HCl (Cardizem Cd -) 240 mg PO DAILY [facility] [place] Last Admin: 05/05/17 13:53 Dose: 240 mg Metronidazole (Flagyl 500mg Premixed Ivpb -) 100 mls @ 100 mls/hr IVPB Q8H-IV [facility] [place] Last Admin: 05/05/17 13:53 Dose: 100 mls/hr Levofloxacin (Levaquin -) 500 mg PO DAILY [facility] [place] Nadolol (Corgard -) 20 mg PO DAILY [facility] [place] Last Admin: 05/05/17 13:52 Dose: 20 mg Polyethylene Glycol (Miralax (For Daily Use) -) 17 gm PO TID [facility] [place] Last Admin: 05/05/17 17:39 Dose: Not Given Ranitidine HCl (Zantac -) 150 mg PO BID [facility] [place] Last Admin: 05/05/17 13:52 Dose: 150 mg - Objective Vital Signs: Vital Signs Temperature 97.6 F 05/05/17 13:07 Pulse Rate 55 L 05/05/17 13:07 Respiratory Rate 20 05/05/17 13:07 Blood Pressure 143/65 05/05/17 13:07 O2 Sat by Pulse Oximetry (%) 99 05/05/17 13:07 Constitutional: Yes: No Distress HENT: Yes: Atraumatic Neck: Yes: Supple Cardiovascular: Yes: Regular Rate and Rhythm Respiratory: Yes: CTA Bilaterally Gastrointestinal: Yes: Normal Bowel Sounds Extremities: Yes: WNL Edema: No Peripheral Pulses WNL: Yes Neurological: Yes: Alert, Oriented Labs: CBC, BMP 05/04/17 07:20 05/04/17 07:20 Problem List - Problems (1) Colitis Assessment/Plan: symptoms improved gi report reviewed cleared by gi to be dc Code(s): K52.9 - NONINFECTIVE GASTROENTERITIS AND COLITIS, UNSPECIFIED (2) Family history of colon cancer in mother Code(s): Z80.0 - FAMILY HISTORY OF MALIGNANT NEOPLASM OF DIGESTIVE ORGANS (3) Rectal bleeding Assessment/Plan: h/h stable Code(s): K62.5 - HEMORRHAGE OF ANUS AND RECTUM (4) Abdominal pain Assessment/Plan: resolved Code(s): R10.9 - UNSPECIFIED ABDOMINAL PAIN Qualifiers: Abdominal location: right lower quadrant Qualified Code(s): R10.31 - Right lower quadrant pain (5) GERD (gastroesophageal reflux disease) Assessment/Plan: stable Code(s): K21.9 - GASTRO-ESOPHAGEAL REFLUX DISEASE WITHOUT ESOPHAGITIS (6) HTN (hypertension) Assessment/Plan: stable on meds Code(s): I10 - ESSENTIAL (PRIMARY) HYPERTENSION (7) Hypothyroidism associated with surgical procedure Code(s): E89.0 - POSTPROCEDURAL HYPOTHYROIDISM (8) UTI (urinary tract infection) Assessment/Plan: will switch to levaquin as per sensitivity Code(s): N39.0 - URINARY TRACT INFECTION, SITE NOT SPECIFIED
[2017-05-05] MEDS: LEVOFLOXACIN 500 MG TABLET (FP) PO SCH (19:05)
[2017-05-06] MEDS: POLYETHYLENE GLYCOL 3350 119 GM BTL PO SCH (05:48)
[2017-05-06 06:16] VITALS: TEMP 98.3
[2017-05-06] MEDS ORDERED: PT OWN MED DRAWER 7, Y5N ONE (10:26)
[2017-05-06] MEDS: CALCITRIOL 0.25 MCG CAPSULE (FP) PO SCH (10:31)
[2017-05-06] MEDS: RANITIDINE HCL 150 MG TABLET (FP) PO SCH (10:32)
[2017-05-06] MEDS: LEVOFLOXACIN 500 MG TABLET (FP) PO SCH (10:32)
[2017-05-06] MEDS: NADOLOL 20 MG TABLET (FP) PO SCH (10:33)
[2017-05-06 11:08] VITALS: BP 135/64; PULSE 61
--- NOTE | 2017-05-06 14:36 | PATH ---
Surgical Pathology Report Patient Name: JONNA CHOWDARY [facility]. Rec. #: [id number] /Age/Gender: 1940 (Age: 76) / F Account: [id number] Location: [address] [place] [address]/[facility] Taken: 05/05/2017 Received: 05/05/2017 Reported: 05/06/2017 Physicians: Hannah Wilder M.D. Specimen(s) Received A: BX 2ND PORTION DUODENUM AND BULB B: BX ANTRUM, BODY C: BX ILEUM D: BX CECUM E: BX POLYP RIGHT COLON F: RECTAL POLYPS Clinical History Family history of colon cancer, weight loss Gastritis (atrophic), polyps, hemorrhoids Final Diagnosis A. DUODENUM, SECOND PORTION AND BULB, BIOPSY: DUODENAL NUCOSA WITH MILD CHRONIC INFLAMMATION. NO HISTOLOGIC EVIDENCE OF GLUTEN SENSITIVE ENTEROPATHY (CELIAC DISEASE). B. STOMACH, ANTRUM AND BODY, BIOPSY: GASTRIC ANTRAL MUCOSA WITH MODERATE CHRONIC GASTRITIS AND REACTIVE GASTROPATHY. IMMUNOSTAIN FOR H. PYLORI IS NEGATIVE FOR ORGANISMS. C. ILEUM, BIOPSY: ILEAL MUCOSA WITH REACTIVE LYMPHOID AGGREGATE. NO EVIDENCE OF ARCHITECTURAL DISTORTION, GRANULOMATA OR DYSPLASIA; NO INCREASE IN INTRAEPITHELIAL LYMPHOCYTES. D. COLON, CECUM, BIOPSY: COLONIC MUCOSA WITH MILD ACTIVE INFLAMMATION (SEE COMMENT). NO EVIDENCE OF ARCHITECTURAL DISTORTION, GRANULOMATA OR DYSPLASIA; NO EVIDENCE OF MICROSCOPIC COLITIS. Comment: The findings are non-specific and may represent mild active colitis of various etiologies including infections and drug/toxin injuries. No significant features of chronicity are seen. Clinical and endoscopic correlations are suggested. E. COLON, RIGHT, POLYP, BIOPSY: CONSISTENT WITH INFLAMMATORY TYPE POLYP. F. RECTUM, POLYPS, BIOPSY: FRAGMENTS OF HYPERPLASTIC POLYPS. Electronically Signed Neo Gonzales M.D. Gross Description A. Received in formalin, labeled "second portion of duodenum and bulb" are 3 [place], irregular portions of soft tissue ranging from 0.3-0.5 cm in greatest dimension. The specimens are submitted in toto in one cassette. B. Received in formalin labeled "antrum," is a 0.9 x 0.7 x 0.2 cm aggregate of betancourt soft tissue fragments. The formalin is filtered and the specimen is entirely submitted in one cassette. C. Received in formalin, labeled "ileum" are 2 [place], irregular portions of soft tissue measuring 0.2 and 0.4 cm in greatest dimension. The specimens are submitted in toto in one cassette. D. Received in formalin, labeled "cecum" are 2 bet[place], irregular portions of soft tissue measuring 0.1 and 0.6 cm in greatest dimension. The specimens are submitted in toto in one cassette. E. Received in formalin, labeled "polyp right colon" are 4 [place], irregular portions of soft tissue ranging from 0.1-0.4 cm in greatest dimension. The specimens are submitted in toto in one cassette. F. Received in formalin, labeled "polyp rectum" are 6 [place], irregular portions of soft tissue ranging from 0.1-0.6 cm. in greatest dimension. The specimens are submitted in toto in one cassette. 05/05/201705/05/2017
--- NOTE | 2017-05-06 17:04 | DS ---
Physical Examination Vital Signs: Vital Signs Temperature 98.3 F 05/06/17 10:00 Pulse Rate 61 05/06/17 10:00 Respiratory Rate 20 05/06/17 10:00 Blood Pressure 135/64 05/06/17 10:00 O2 Sat by Pulse Oximetry (%) 98 05/05/17 21:00 Labs: CBC, BMP 05/04/17 07:20 05/04/17 07:20 Discharge Summary Reason For Visit: COLITIS - Instructions Diet, Activity, Other Instructions: see your doctor 1 week Referrals: Dylan Storm MD [Primary Care Provider] - Kleber Napoles MD [Staff Physician] - Disposition: HOME - Home Medications Comprehensive Discharge Medication List: Ambulatory Orders Bupropion HCl [Wellbutrin -] 300 mg PO DAILY 06/01/16 Calcitriol [Calcitriol -] 0.25 mcg PO DAILY 06/01/16 Folic Acid 1 mg PO DAILY 06/01/16 L.acidoph,Paracasei, B.lactis [Probiotic] 1 each PO DAILY 06/01/16 Levothyroxine [Synthroid -] 25 mcg PO DAILY 06/01/16 Loperamide HCl/Simethicone [Imodium Multi-Symptom Rel Cplt] 1 each PO DAILY PRN 06/01/16 Diltiazem Cd [Cardizem Cd -] 240 mg PO DAILY 05/03/17 Furosemide [Lasix -] 20 mg PO DAILY 05/03/17 Nadolol 20 mg PO DAILY 05/03/17 Levofloxacin [Levaquin -] 250 mg PO DAILY #5 tablet 05/05/17 tn home
== END 2017-05-06 11:05 | disposition home or self-care (01) | DRG 392 ==
LOC: JER 08:07 → JERBED 15:15 → J6S 17:30
PROVIDERS: ADMIT Internal Medicine; ATTEND Internal Medicine
PROC: 0DB98ZX Excision of Duodenum, Via Natural or Artificial Opening Endoscopic, Diagnostic (ICD-10-PCS; 2017-05-05)
PROC: 0DBK8ZZ Excision of Ascending Colon, Via Natural or Artificial Opening Endoscopic (ICD-10-PCS; 2017-05-05)
PROC: 0DBP8ZZ Excision of Rectum, Via Natural or Artificial Opening Endoscopic (ICD-10-PCS; 2017-05-05)
PROC: 0DBB8ZX Excision of Ileum, Via Natural or Artificial Opening Endoscopic, Diagnostic (ICD-10-PCS; 2017-05-05)
PROC: 0DBE8ZX Excision of Large Intestine, Via Natural or Artificial Opening Endoscopic, Diagnostic (ICD-10-PCS; 2017-05-05)
PROC: 0DB68ZX Excision of Stomach, Via Natural or Artificial Opening Endoscopic, Diagnostic (ICD-10-PCS; principal; 2017-05-05 09:15)
DX: K58.0 Irritable bowel syndrome with diarrhea (principal); G40.89 Other seizures; N39.0 Urinary tract infection, site not specified; R64 Cachexia; K62.5 Hemorrhage of anus and rectum; E89.0 Postprocedural hypothyroidism; Z90.710 Acquired absence of both cervix and uterus; R63.4 Abnormal weight loss; Z68.22 Body mass index [BMI] 22.0-22.9, adult; M19.90 Unspecified osteoarthritis, unspecified site; G47.30 Sleep apnea, unspecified; D51.9 Vitamin B12 deficiency anemia, unspecified; Z80.0 Family history of malignant neoplasm of digestive organs; Z80.3 Family history of malignant neoplasm of breast; Z80.42 Family history of malignant neoplasm of prostate; Z80.1 Family history of malignant neoplasm of trachea, bronchus and lung; Z80.7 Family history of other malignant neoplasms of lymphoid, hematopoietic and related tissues; K21.9 Gastro-esophageal reflux disease without esophagitis; I10 Essential (primary) hypertension; D12.2 Benign neoplasm of ascending colon; D12.8 Benign neoplasm of rectum; K57.30 Diverticulosis of large intestine without perforation or abscess without bleeding; K64.8 Other hemorrhoids; K29.50 Unspecified chronic gastritis without bleeding
CPT/HCPCS: 36415; 74176-TC; 80048; 80053; 81003; 81015; 82272; 82378; 82607; 82728; 83540; 83550; 83605; 83690; 84156; 84166; 84443; 85025; 85044; 86140; 86301; 87045; 87046; 87081; 87086; 87186; 87324; 87449; 88305-TC; 93005; 93010; 99283-25

== ENCOUNTER 2024-07-23 09:40 | Inpatient (IN) | payer OTHER, BC ==
[2024-07-23 12:15] LABS: EOS % 0.4 % (0-4.5); HEMOGLOBIN 11.6 GM/dL (10.7-15.3); LYMPH % 21.3 % (8-40); MCH 31.1 pg (25.7-33.7); MCHC 33.1 g/dl (32.0-36.0); MEAN CELL VOLUME 93.8 fl (80-96); MEAN PLT VOLUME 7.8 fl (7.5-11.1); MONO % 8.4 % (3.8-10.2); NEUT % 68.9 % (42.8-82.8); PLATELET COUNT 222 10^3/uL (134-434); RBC 3.73 M/mm3 (3.60-5.2); RDW 15.8 % (11.6-15.6); WHITE BLOOD COUNT 4.3 K/mm3 (4.0-10.0)
[2024-07-23 12:21] LABS: INR 1.24 (0.83-1.09); PROTHROMBIN TIME (PATIENT) 13.9 SEC (9.7-13.0)
[2024-07-23 12:24] LABS: ACTIVATED PTT 33.9 SECONDS (25.2-36.5)
[2024-07-23] MEDS ORDERED: IBUPROFEN 400 MG TABLET (FP) PO ONE (12:31)
[2024-07-23 12:33] LABS: CHLORIDE 103 mmol/L (98-107); SODIUM 145 mmol/L (136-145)
[2024-07-23 12:35] LABS: ALBUMIN 3.2 g/dl (3.4-5.0); BLOOD UREA NITROGEN 10.4 mg/dL (7-18); CO2 30 mmol/L (21-32); GLUCOSE,RANDOM 78 mg/dL (74-106); MAGNESIUM 1.5 mg/dL (1.8-2.4)
[2024-07-23 12:39] LABS: BILIRUBIN,TOTAL 0.7 mg/dL (0.2-1); CREATININE 1.7 mg/dL (0.55-1.3); SGOT/AST 28 U/L (15-37); SGPT/ALT 14 U/L (13-61)
[2024-07-23 12:41] LABS: ALK PHOS 77 U/L (45-117)
[2024-07-23 12:56] LABS: ANION GAP 12 mmol/L (4-13); CALCIUM 5.2 mg/dL (8.5-10.1); POTASSIUM 2.6 mmol/L (3.5-5.1)
[2024-07-23] MEDS ORDERED: MAGNESIUM 1GM/D5W - 1 GM/100 ML IVPB IVPB ONE (12:57)
[2024-07-23] MEDS: MAGNESIUM 1GM/D5W - 1 GM/100 ML IVPB IVPB ONE (13:01)
[2024-07-23] MEDS ORDERED: POTASSIUM CHLORIDE ORAL LIQUID 20 MEQ/15 ML ONE (13:40)
[2024-07-23] MEDS: SODIUM CHLORIDE 0.9% 500 ML INFUS.BAG IV ONE (13:59)
[2024-07-23] MEDS: KCL 10 MEQ IVPB 10 MEQ/100 ML INFUS.BAG IVPB SCH (14:00)
[2024-07-23] MEDS: POTASSIUM CHLORIDE ORAL LIQUID 20 MEQ/15 ML PO ONE (14:00)
[2024-07-23] MEDS: MAGNESIUM SULFATE IN WATER 2 GM/50 ML IVPB IVPB ONE (14:38)
[2024-07-23] MEDS: CALCIUM GLUCONATE IN NACL, 1,000 MG/100 ML BAG IVPB SCH (16:30)
[2024-07-23] MEDS: CALCIUM 500MG/VIT-D 200 UNITS COMBO TABLET (FP) PO SCH (17:33)
[2024-07-23] MEDS ORDERED: CALCIUM GLUC IN NACL, ISO-OSM 1 GM/50 ML BAG IVPB ONE (17:53)
[2024-07-23] MEDS: CALCIUM GLUC IN NACL, ISO-OSM 1 GM/50 ML BAG IVPB ONE (17:56)
[2024-07-23] MEDS: CALCIUM CARBONATE 650 MG TABLET PO SCH (18:10)
[2024-07-23] MEDS: HEPARIN NA (PORCINE) 5,000 UNITS/ML 1ML VIAL SQ SCH (23:43)
[2024-07-24 08:26] LABS: EOS % 1.6 % (0-4.5); HEMATOCRIT 31.1 % (32.4-45.2); HEMOGLOBIN 10.6 GM/dL (10.7-15.3); LYMPH % 45.3 % (8-40); MCH 31.7 pg (25.7-33.7); MEAN CELL VOLUME 93.2 fl (80-96); MEAN PLT VOLUME 8.3 fl (7.5-11.1); MONO % 13.2 % (3.8-10.2); NEUT % 38.9 % (42.8-82.8); PLATELET COUNT 190 10^3/uL (134-434); RBC 3.34 M/mm3 (3.60-5.2); RDW 15.8 % (11.6-15.6); WHITE BLOOD COUNT 3.8 K/mm3 (4.0-10.0)
[2024-07-24 08:46] LABS: CHLORIDE 110 mmol/L (98-107); POTASSIUM 3.4 mmol/L (3.5-5.1); SODIUM 146 mmol/L (136-145)
[2024-07-24 08:48] LABS: ALBUMIN 2.7 g/dl (3.4-5.0); ANION GAP 5 mmol/L (4-13); BLOOD UREA NITROGEN 20.4 mg/dL (7-18); CO2 31 mmol/L (21-32); GLUCOSE,RANDOM 82 mg/dL (74-106)
[2024-07-24 08:51] LABS: CREATININE 1.5 mg/dL (0.55-1.3); SGOT/AST 24 U/L (15-37); SGPT/ALT 11 U/L (13-61)
[2024-07-24 08:53] LABS: BILIRUBIN,TOTAL 0.6 mg/dL (0.2-1); CALCIUM 5.8 mg/dL (8.5-10.1)
[2024-07-24 08:54] LABS: ALK PHOS 64 U/L (45-117)
[2024-07-24] MEDS ORDERED: CALCIUM GLUC IN NACL, ISO-OSM 1 GM/50 ML BAG IVPB ONE (11:37)
[2024-07-24] MEDS ORDERED: HEPARIN NA (PORCINE) 5,000 UNITS/ML 1ML VIAL ONE (11:37)
[2024-07-24] MEDS: CALCIUM GLUCONATE IN NACL 1 GM/50 ML BAG IVPB ONE (11:56)
[2024-07-24] MEDS: POTASSIUM CHLORIDE TABS 20 MEQ TABLET.ER (FP) PO SCH (11:57)
[2024-07-24] MEDS ORDERED: CALCITRIOL 0.25 MCG CAPSULE (FP) PO SCH (13:15)
[2024-07-24 14:00] LABS: MAGNESIUM 1.7 mg/dL (1.8-2.4)
[2024-07-24 14:10] LABS: PHOSPHOROUS 3.6 mg/dL (2.5-4.9)
[2024-07-24] MEDS ORDERED: CALCIUM GLUCONATE 10% - 1,000 MG/10 ML VIAL IVPB SCH (15:45)
[2024-07-24] MEDS: CALCITRIOL 0.25 MCG CAPSULE (FP) PO SCH (17:47)
[2024-07-24] MEDS: CALCIUM GLUCONATE IN NACL 1 GM/50 ML BAG IVPB SCH (17:48)
[2024-07-24 18:38] VITALS: BMI 19.1
[2024-07-25 07:28] LABS: CHLORIDE 111 mmol/L (98-107); POTASSIUM 3.6 mmol/L (3.5-5.1); SODIUM 146 mmol/L (136-145)
[2024-07-25 07:33] LABS: ALBUMIN 2.6 g/dl (3.4-5.0); ANION GAP 4 mmol/L (4-13); BLOOD UREA NITROGEN 22.9 mg/dL (7-18); CO2 31 mmol/L (21-32)
[2024-07-25 07:34] LABS: GLUCOSE,RANDOM 83 mg/dL (74-106)
[2024-07-25 07:36] LABS: CREATININE 1.4 mg/dL (0.55-1.3); SGOT/AST 21 U/L (15-37); SGPT/ALT 11 U/L (13-61)
[2024-07-25 07:37] LABS: BILIRUBIN,TOTAL 0.5 mg/dL (0.2-1); TOT PROT 5.9 g/dl (6.4-8.2)
[2024-07-25 07:40] LABS: ALK PHOS 59 U/L (45-117)
[2024-07-25 07:42] LABS: CALCIUM 6.3 mg/dL (8.5-10.1)
[2024-07-25] MEDS: MAGNESIUM 2GM/50ML STERILE WATER IVPB IVPB ONE (08:59)
[2024-07-25] MEDS ORDERED: amLODIPine BESYLATE 10 MG TABLET (FP) PO SCH (10:00)
[2024-07-25] MEDS ORDERED: SODIUM CHLORIDE 0.45% 1,000 ML IV SCH ×2 (10:00→14:30)
[2024-07-25] MEDS ORDERED: SODIUM CHLORIDE 1,000 ML IV SCH (10:00)
[2024-07-25] MEDS: NADOLOL 40 MG TABLET (FP) PO SCH (12:38)
[2024-07-25] MEDS: CALCIUM GLUCONATE 10% - 1,000 MG/10 ML VIAL IVPB SCH (15:01)
[2024-07-26 06:56] LABS: HEMATOCRIT 33.9 % (32.4-45.2); MCH 31.1 pg (25.7-33.7); MCHC 32.6 g/dl (32.0-36.0); MEAN CELL VOLUME 95.5 fl (80-96); MEAN PLT VOLUME 8.6 fl (7.5-11.1); PLATELET COUNT 200 10^3/uL (134-434); RBC 3.55 M/mm3 (3.60-5.2); RDW 15.6 % (11.6-15.6); WHITE BLOOD COUNT 3.7 K/mm3 (4.0-10.0)
[2024-07-26 07:08] LABS: POTASSIUM 3.9 mmol/L (3.5-5.1)
[2024-07-26 07:15] LABS: ALBUMIN 2.6 g/dl (3.4-5.0); BLOOD UREA NITROGEN 27.7 mg/dL (7-18)
[2024-07-26 07:16] LABS: MAGNESIUM 2.1 mg/dL (1.8-2.4)
[2024-07-26 07:18] LABS: BILIRUBIN,TOTAL 0.3 mg/dL (0.2-1); CREATININE 1.4 mg/dL (0.55-1.3); TOT PROT 5.7 g/dl (6.4-8.2)
[2024-07-26 07:19] LABS: PHOSPHOROUS 3.7 mg/dL (2.5-4.9)
[2024-07-26 07:40] LABS: CALCIUM 7.7 mg/dL (8.5-10.1)
[2024-07-26 21:37] VITALS: RESP 18
[2024-07-26] MEDS: CALCIUM CARBONATE 650 MG TABLET PO SCH (21:51)
[2024-07-26] MEDS: HEPARIN NA (PORCINE) 5,000 UNITS/ML 1ML VIAL SQ SCH (21:51)
[2024-07-26] MEDS: CALCITRIOL 0.25 MCG CAPSULE (FP) PO SCH (21:51)
[2024-07-27 09:44] LABS: HEMATOCRIT 32.9 % (32.4-45.2); HEMOGLOBIN 10.6 GM/dL (10.7-15.3); MCH 31.1 pg (25.7-33.7); MCHC 32.2 g/dl (32.0-36.0); MEAN CELL VOLUME 96.6 fl (80-96); MEAN PLT VOLUME 8.8 fl (7.5-11.1); PLATELET COUNT 218 10^3/uL (134-434); RDW 15.7 % (11.6-15.6)
[2024-07-27 10:11] LABS: POTASSIUM 3.5 mmol/L (3.5-5.1)
[2024-07-27 10:14] LABS: ALBUMIN 2.5 g/dl (3.4-5.0); BLOOD UREA NITROGEN 23.2 mg/dL (7-18); MAGNESIUM 2.1 mg/dL (1.8-2.4)
[2024-07-27 10:17] LABS: CREATININE 1.4 mg/dL (0.55-1.3)
[2024-07-27 10:18] LABS: PHOSPHOROUS 2.5 mg/dL (2.5-4.9)
[2024-07-27 10:19] LABS: BILIRUBIN,TOTAL 0.5 mg/dL (0.2-1); TOT PROT 5.8 g/dl (6.4-8.2)
[2024-07-27] MEDS: amLODIPine BESYLATE 10 MG TABLET (FP) PO SCH (10:38)
[2024-07-27] MEDS: NADOLOL 40 MG TABLET (FP) PO SCH (10:42)
[2024-07-27 14:53] VITALS: BP 132/70; PULSE 57; TEMP 97.7
== END 2024-07-27 16:46 | DRG 640 ==
LOC: JER 09:40 → JERBED 13:37 → OBSVTOIN 07-24 10:40 → J4W 07-24 15:11 → J6S 07-26 17:01
PROVIDERS: ADMIT Internal Medicine; ATTEND Internal Medicine
DX: E83.51 Hypocalcemia (principal); G93.41 Metabolic encephalopathy; E87.6 Hypokalemia; E03.9 Hypothyroidism, unspecified; R53.1 Weakness; E83.42 Hypomagnesemia
CPT/HCPCS: 36415; 70450-TC; 71045-TC-FY; 80053; 82550; 82553; 83735; 83970; 84100; 84439; 84443; 84484; 85025; 85027; 85610; 85730; 86850; 86900; 86901; 87635; 93005; 93010; 93306-TC; 97116-GP; 97161-GP; 99285-25; G0378; J1644